=== PATIENT | female | born 1980 | race African-American/Black ===

== ENCOUNTER 2017-01-02 16:59 | Observation (INO) | payer MEDICAID ==
[~2017-01-02] VITALS: Ht 162.6 cm; Wt 88.5 kg
[2017-01-02 18:11] LABS: BASOPHILS % 0.3 % (0.0-2.0); EOSINOPHILS % 1.1 % (0.0-5.0); HEMATOCRIT. 33.3 % (36.0-48.0); HEMOGLOBIN. 11.1 g/dL (12.0-16.0); LYMPHOCYTES % 27.9 % (20.0-50.0); MEAN CORPUSCULAR HEMOGLOBIN 30.7 pg (28.0-32.0); MEAN CORPUSCULAR VOLUME 91.9 fL (81.0-99.0); MONOCYTES % 8.6 % (2.0-8.0); NEUTROPHILS % 62.1 % (40.0-76.0); PLATELET 314 x1000/uL (130-400); RED BLOOD CELL COUNT 3.63 mill/uL (4.2-5.4)
[2017-01-02 18:11] LABS: CLARITY URINE TURBID (CLEAR); COLOR URINE YELLOW (YELLOW); GLUCOSE URINE NEGATIVE (NEGATIVE); KETONES URINE NEGATIVE (NEGATIVE); LEUKOCYTE ESTERASE URINE 1+ (NEGATIVE); NITRITE URINE NEGATIVE (NEGATIVE); OCCULT BLOOD URINE TRACE (NEGATIVE); PROTEIN URINE 2+ (NEGATIVE); SPECIFIC GRAVITY URINE 1.023 (1.005-1.030)
[2017-01-02 18:20] LABS: CHLORIDE 108 mEq/L (98-107); PARTIAL THROMBOPLASTIN TIME 29.3 sec (23.4-31.0); PROTHROMBIN TIME 10.3 sec (9.4-11.6)
[2017-01-02 18:21] LABS: *AMPHETAMINES SCREEN URINE NEGATIVE (NEGATIVE); *BARBITURATES SCREEN URINE NEGATIVE (NEGATIVE); *BENZODIAZEPINES SCREEN URINE NEGATIVE (NEGATIVE); *COCAINE SCREEN URINE NEGATIVE (NEGATIVE); CANNABINOID URINE SCREEN NEGATIVE (NEGATIVE); METHADONE URINE SCREEN NEGATIVE (NEGATIVE); OPIATES URINE SCREEN NEGATIVE (NEGATIVE); PHENCYCLIDINE URINE SCREEN NEGATIVE (NEGATIVE)
[2017-01-02 18:23] LABS: CARBON DIOXIDE 22 mEq/L (21-32)
[2017-01-02 18:43] LABS: RUBELLA IGG 21.2 IU/mL (4.99-10)
[2017-01-02 18:44] LABS: HEPATITIS B SURFACE ANTIGEN NEGATIVE
[2017-01-02] MEDS: BETAMETHASONE ACET/BETAMET 30 MG/5 ML VIAL IM SCH (19:07)
[2017-01-02] MEDS: TERBUTALINE SULFATE 1MG/ML VIAL SUBCUT PRN (19:08)
[2017-01-02] MEDS: LACTATED RINGERS 1,000 ML IV SCH (19:43)
[2017-01-03] MEDS: LACTATED RINGERS 1,000 ML IV SCH ×3 (02:22→16:41)
[2017-01-03] MEDS: TERBUTALINE SULFATE 1MG/ML VIAL SUBCUT PRN (08:42)
[2017-01-03] MEDS ORDERED: ACETAMINOPHEN 325MG TABLET PO NR (09:00)
[2017-01-03] MEDS: BETAMETHASONE ACET/BETAMET 30 MG/5 ML VIAL IM SCH (18:46)
[2017-01-04] MEDS: LACTATED RINGERS 1,000 ML IV SCH ×3 (00:06→16:17)
[2017-01-04] MEDS: METRONIDAZOLE 500MG TABLET PO SCH ×2 (09:02→21:01)
[2017-01-04] MEDS ORDERED: ACETAMINOPHEN 500MG TABLET PO PRN (16:30)
== END 2017-01-05 09:30 | disposition home or self-care (01) ==
LOC: L&D 16:59
PROVIDERS: ADMIT Obstetrics & Gynecology; ATTEND Obstetrics & Gynecology
DX: O62.9 Abnormality of forces of labor, unspecified (principal); Z3A.33 33 weeks gestation of pregnancy
CPT/HCPCS: 36415; 76805; 76818; 80053; 80305; 81001; 82575; 84156; 84550; 85025; 85384; 85610; 85730; 86592; 86703; 86762; 86850; 86900; 86901; 87340; 96360; 96361; 96372; G0378; J0702; J3105; J7120; 99281

== ENCOUNTER 2017-01-07 03:45 | Observation (INO) | payer MEDICAID ==
[~2017-01-07] VITALS: Ht 160 cm; Wt 88.5 kg
[2017-01-07] MEDS ORDERED: LACTATED RINGERS 1,000 ML IV SCH (04:02)
[2017-01-07] MEDS ORDERED: ACETAMINOPHEN 500MG TABLET PO NR (04:15)
[2017-01-07] MEDS: LACTATED RINGERS 1,000 ML IV SCH ×2 (04:30→12:56)
[2017-01-07] MEDS ORDERED: DEXT 5%/LR + PITOCIN 20UNITS/L 1,000 ML IV SCH (05:32)
[2017-01-07 05:36] LABS: D-DIMER 0.85 mg/L FEU (<0.50); PARTIAL THROMBOPLASTIN TIME 28.5 sec (23.4-31.0); PROTHROMBIN TIME 10.4 sec (9.4-11.6)
[2017-01-07 05:37] LABS: BASOPHILS % 0.3 % (0.0-2.0); EOSINOPHILS % 0.5 % (0.0-5.0); HEMATOCRIT. 32.6 % (36.0-48.0); HEMOGLOBIN. 10.7 g/dL (12.0-16.0); LYMPHOCYTES % 25.6 % (20.0-50.0); MEAN CORPUSCULAR HEMOGLOBIN 30.3 pg (28.0-32.0); MEAN CORPUSCULAR VOLUME 92.5 fL (81.0-99.0); MEAN PLATELET VOLUME 7.7 fl (7.4-10.4); MONOCYTES % 7.4 % (2.0-8.0); NEUTROPHILS % 66.2 % (40.0-76.0); PLATELET 276 x1000/uL (130-400); RED BLOOD CELL COUNT 3.53 mill/uL (4.2-5.4); RED CELL DISTRIBUTION WIDTH 14.1 % (11.6-14.6)
[2017-01-07 05:39] LABS: CARBON DIOXIDE 25 mEq/L (21-32); CHLORIDE 106 mEq/L (98-107)
[2017-01-07] MEDS ORDERED: BUTORPHANOL TARTRATE 2 MG/ML VIAL IV PRN (05:45)
[2017-01-07] MEDS ORDERED: LIDOCAINE HCL 1% 20ML VIAL (Pyxis) INJ INFIL SCH (05:45)
[2017-01-07] MEDS ORDERED: MISOPROSTOL 100MCG TABLET VG SCH (05:45)
[2017-01-07 05:47] LABS: CLARITY URINE CLEAR (CLEAR); COLOR URINE YELLOW (YELLOW); GLUCOSE URINE NEGATIVE (NEGATIVE); KETONES URINE NEGATIVE (NEGATIVE); LEUKOCYTE ESTERASE URINE NEGATIVE (NEGATIVE); NITRITE URINE NEGATIVE (NEGATIVE); OCCULT BLOOD URINE NEGATIVE (NEGATIVE); PH URINE 6.5 (4.5-8.0); PROTEIN URINE 1+ (NEGATIVE); SPECIFIC GRAVITY URINE 1.018 (1.005-1.030); UROBILINOGEN URINE 0.2 E.U./dL (0.2-1.0)
[2017-01-07 06:16] LABS: *AMPHETAMINES SCREEN URINE NEGATIVE (NEGATIVE); *BARBITURATES SCREEN URINE NEGATIVE (NEGATIVE); *BENZODIAZEPINES SCREEN URINE NEGATIVE (NEGATIVE); *COCAINE SCREEN URINE NEGATIVE (NEGATIVE); CANNABINOID URINE SCREEN NEGATIVE (NEGATIVE); METHADONE URINE SCREEN NEGATIVE (NEGATIVE); OPIATES URINE SCREEN NEGATIVE (NEGATIVE); PHENCYCLIDINE URINE SCREEN NEGATIVE (NEGATIVE)
[2017-01-07] MEDS: MAGNESIUM 20 G PREMIX (L & D) 500 ML IV SCH ×3 (06:19→23:33)
[2017-01-07 07:51] LABS: HEPATITIS B SURFACE ANTIGEN NEGATIVE
[2017-01-07] MEDS: LABETALOL HCL 100MG TABLET PO SCH ×2 (08:51→20:09)
[2017-01-07] MEDS ORDERED: CEFAZOLIN 1000MG PREMIX 50 ML IV ONE (11:30)
[2017-01-07] MEDS: ACETAMINOPHEN 325MG TABLET PO PRN ×2 (12:52→20:09)
[2017-01-07] MEDS ORDERED: DIPHENHYDRAMINE 25MG CAPSULE PO NR (20:03)
[2017-01-08] MEDS: LACTATED RINGERS 1,000 ML IV SCH ×3 (02:22→22:02)
[2017-01-08] MEDS: ACETAMINOPHEN 325MG TABLET PO PRN (02:28)
[2017-01-08 05:10] LABS: BASOPHILS % 0.2 % (0.0-2.0); EOSINOPHILS % 0.4 % (0.0-5.0); HEMATOCRIT. 32.1 % (36.0-48.0); HEMOGLOBIN. 10.7 g/dL (12.0-16.0); LYMPHOCYTES % 23.6 % (20.0-50.0); MEAN CORPUSCULAR HEMOGLOBIN 30.6 pg (28.0-32.0); MEAN CORPUSCULAR VOLUME 91.6 fL (81.0-99.0); MEAN PLATELET VOLUME 7.1 fl (7.4-10.4); NEUTROPHILS % 66.8 % (40.0-76.0); PLATELET 277 x1000/uL (130-400); RED BLOOD CELL COUNT 3.51 mill/uL (4.2-5.4); RED CELL DISTRIBUTION WIDTH 14.5 % (11.6-14.6)
[2017-01-08 05:21] LABS: D-DIMER 0.87 mg/L FEU (<0.50)
[2017-01-08 06:06] LABS: CARBON DIOXIDE 27 mEq/L (21-32); CHLORIDE 104 mEq/L (98-107)
[2017-01-08] MEDS: LABETALOL HCL 100MG TABLET PO SCH ×2 (08:52→22:00)
[2017-01-08 08:53] VITALS: BP 145/94
[2017-01-08] MEDS: MAGNESIUM 20 G PREMIX (L & D) 500 ML IV SCH (08:53)
[2017-01-08] MEDS ORDERED: ACETAMINOPHEN 500MG TABLET PO SCH (09:15)
[2017-01-09] MEDS: LABETALOL HCL 100MG TABLET PO SCH (08:33)
[2017-01-09] MEDS: LACTATED RINGERS 1,000 ML IV SCH (08:34)
[2017-01-09] MEDS ORDERED: LABETALOL HCL 100MG TABLET PO SCH (14:00)
[2017-01-10] MEDS ORDERED: IRON1CAP21 PO (00:30)
[2017-01-10] MEDS ORDERED: PNV1TABL76 MT (00:30)
[2017-01-10] MEDS ORDERED: METR500T4 PO (00:30)
[2017-01-10] MEDS ORDERED: LABE100T PO (00:30)
== END 2017-01-09 09:25 | disposition home or self-care (01) ==
LOC: L&D 03:45
PROVIDERS: ADMIT Obstetrics & Gynecology; ATTEND Obstetrics & Gynecology
DX: O26.893 Other specified pregnancy related conditions, third trimester (principal); R51 Headache; O99.013 Anemia complicating pregnancy, third trimester; O16.3 Unspecified maternal hypertension, third trimester; Z3A.34 34 weeks gestation of pregnancy
CPT/HCPCS: 36415; 76815; 76818; 80053; 80305; 81001; 82575; 83735; 84550; 85025; 85379; 85384; 85610; 85730; 86592; 86703; 86762; 86850; 86900; 86901; 87340; 96361; 96365; 96366; 99281; G0378; J3475; J7120; Q0163

== ENCOUNTER 2017-01-09 20:56 | Observation (INO) | payer MEDICAID ==
[~2017-01-09] VITALS: Ht 157.5 cm; Wt 88.5 kg
[2017-01-09] MEDS ORDERED: ACETAMINOPHEN 500MG TABLET PO NR (22:15)
[2017-01-09] MEDS ORDERED: LABETALOL HCL 100MG TABLET PO NR (22:15)
[2017-01-10] MEDS ORDERED: IRON1CAP21 PO (00:30)
[2017-01-10] MEDS ORDERED: LABE100T PO (00:30)
[2017-01-10] MEDS ORDERED: PNV1TABL76 MT (00:30)
[2017-01-10] MEDS ORDERED: METR500T4 PO (00:30)
== END 2017-01-10 00:35 | disposition home or self-care (01) ==
LOC: L&D 20:56 → INTOOBSV 20:56
PROVIDERS: ADMIT Obstetrics & Gynecology; ATTEND Obstetrics & Gynecology
DX: O26.899 Other specified pregnancy related conditions, unspecified trimester (principal); R51 Headache; O16.9 Unspecified maternal hypertension, unspecified trimester
CPT/HCPCS: 59025; 76815; 76818; 99281; G0378

== ENCOUNTER 2017-01-21 11:40 | Inpatient (IN) | payer MEDICAID ==
[~2017-01-21] VITALS: Ht 160 cm; Wt 87.1 kg
[~2017-01-21 11:40] MED LIST: IRON1CAP21 PO; LABE100T PO; METR500T4 PO; PNV1TABL76 MT
[2017-01-21] MEDS ORDERED: ACETAMINOPHEN 500MG TABLET PO SCH (12:45)
[2017-01-21 13:28] LABS: BASOPHILS % 0.7 % (0.0-2.0); EOSINOPHILS % 0.9 % (0.0-5.0); HEMATOCRIT. 33.6 % (36.0-48.0); HEMOGLOBIN. 11.2 g/dL (12.0-16.0); LYMPHOCYTES % 24.9 % (20.0-50.0); MEAN CORPUSCULAR HEMOGLOBIN 30.4 pg (28.0-32.0); MEAN CORPUSCULAR VOLUME 91.3 fL (81.0-99.0); MEAN PLATELET VOLUME 7.4 fl (7.4-10.4); MONOCYTES % 5.5 % (2.0-8.0); PLATELET 285 x1000/uL (130-400); RED BLOOD CELL COUNT 3.68 mill/uL (4.2-5.4); RED CELL DISTRIBUTION WIDTH 14.5 % (11.6-14.6)
[2017-01-21 13:30] LABS: CLARITY URINE CLOUDY (CLEAR); COLOR URINE YELLOW (YELLOW); KETONES URINE TRACE (NEGATIVE); LEUKOCYTE ESTERASE URINE 1+ (NEGATIVE); NITRITE URINE NEGATIVE (NEGATIVE); OCCULT BLOOD URINE 2+ (NEGATIVE); PH URINE 5.5 (4.5-8.0); PROTEIN URINE 1+ (NEGATIVE); SPECIFIC GRAVITY URINE 1.035 (1.005-1.030)
[2017-01-21 13:35] LABS: CHLORIDE 108 mEq/L (98-107)
[2017-01-21 13:44] LABS: CARBON DIOXIDE 25 mEq/L (21-32)
[2017-01-21 13:55] LABS: D-DIMER 0.99 mg/L FEU (<0.50); PARTIAL THROMBOPLASTIN TIME 29.2 sec (23.4-31.0)
[2017-01-21] MEDS: LACTATED RINGERS 1,000 ML IV SCH ×2 (14:37→18:05)
[2017-01-21] MEDS: LABETALOL HCL 100MG TABLET PO SCH ×2 (14:46→22:46)
[2017-01-22] MEDS: LACTATED RINGERS 1,000 ML IV SCH ×4 (01:48→22:59)
[2017-01-22] MEDS: LABETALOL HCL 100MG TABLET PO SCH ×3 (06:00→22:03)
[2017-01-22] MEDS ORDERED: LACTATED RINGERS 1,000 ML IV SCH (07:08)
[2017-01-22] MEDS ORDERED: DEXT 5%/LACTATED RINGERS 1,000 ML IV SCH (07:08)
[2017-01-22] MEDS ORDERED: CARBOPROST TROMETHAMINE 250 MCG/ML AMPUL IM PRN (07:15)
[2017-01-22] MEDS ORDERED: LIDOCAINE HCL 1% 20ML VIAL (Pyxis) INJ INFIL PRN (07:15)
[2017-01-22] MEDS ORDERED: BUTORPHANOL TARTRATE 2 MG/ML VIAL IV PRN (07:15)
[2017-01-22] MEDS ORDERED: MISOPROSTOL 100MCG TABLET VG PRN (07:15)
[2017-01-22] MEDS ORDERED: NALOXONE HCL 0.4 MG/ML 1ML VIAL IM PRN (07:15)
[2017-01-22] MEDS ORDERED: METHYLERGONOVINE MALEATE 0.2 MG/ML IM PRN (07:15)
[2017-01-22 08:11] LABS: BASOPHILS % 0.3 % (0.0-2.0); EOSINOPHILS % 0.7 % (0.0-5.0); HEMATOCRIT. 33.6 % (36.0-48.0); LYMPHOCYTES % 29.6 % (20.0-50.0); MEAN CORPUSCULAR VOLUME 91.5 fL (81.0-99.0); MEAN PLATELET VOLUME 7.5 fl (7.4-10.4); NEUTROPHILS % 61.4 % (40.0-76.0); PLATELET 281 x1000/uL (130-400); RED BLOOD CELL COUNT 3.67 mill/uL (4.2-5.4); RED CELL DISTRIBUTION WIDTH 14.8 % (11.6-14.6)
[2017-01-22 08:26] LABS: D-DIMER 1.16 mg/L FEU (<0.50); PROTHROMBIN TIME 10.2 sec (9.4-11.6)
[2017-01-22 08:27] LABS: CARBON DIOXIDE 24 mEq/L (21-32); CHLORIDE 106 mEq/L (98-107)
[2017-01-22 08:39] LABS: *AMPHETAMINES SCREEN URINE NEGATIVE (NEGATIVE); *BARBITURATES SCREEN URINE NEGATIVE (NEGATIVE); *BENZODIAZEPINES SCREEN URINE NEGATIVE (NEGATIVE); *COCAINE SCREEN URINE NEGATIVE (NEGATIVE); CANNABINOID URINE SCREEN NEGATIVE (NEGATIVE); METHADONE URINE SCREEN NEGATIVE (NEGATIVE); OPIATES URINE SCREEN NEGATIVE (NEGATIVE); PHENCYCLIDINE URINE SCREEN NEGATIVE (NEGATIVE)
[2017-01-22 08:51] LABS: CLARITY URINE CLEAR (CLEAR); COLOR URINE YELLOW (YELLOW); KETONES URINE NEGATIVE (NEGATIVE); LEUKOCYTE ESTERASE URINE 3+ (NEGATIVE); NITRITE URINE NEGATIVE (NEGATIVE); OCCULT BLOOD URINE 1+ (NEGATIVE); PH URINE 6.5 (4.5-8.0); PROTEIN URINE NEGATIVE (NEGATIVE); SPECIFIC GRAVITY URINE 1.008 (1.005-1.030); UROBILINOGEN URINE 0.2 E.U./dL (0.2-1.0)
[2017-01-22 13:28] LABS: HEPATITIS B SURFACE ANTIGEN NEGATIVE; RUBELLA IGG 21.9 IU/mL (4.99-10)
[2017-01-23] MEDS: LABETALOL HCL 100MG TABLET PO SCH ×2 (06:06→13:33)
[2017-01-23] MEDS: LACTATED RINGERS 1,000 ML IV SCH ×4 (06:37→20:36)
[2017-01-23] MEDS ORDERED: TERBUTALINE SULFATE 1MG/ML VIAL SUBCUT NR (18:30)
[2017-01-23] MEDS ORDERED: DEXAMETHASONE 4MG/ML 1ML VIAL ONE (18:53)
[2017-01-23] MEDS ORDERED: MIDAZOLAM HCL 2 MG/2 ML VIAL ONE (18:53)
[2017-01-23] MEDS ORDERED: SODIUM CHLORIDE 0.9% 10ML VIAL ONE ×2 (18:53→21:53)
[2017-01-23] MEDS ORDERED: ONDANSETRON HCL 4MG/2ML VIAL ONE (18:53)
[2017-01-23] MEDS ORDERED: CLINDAMYCIN PHOSPHATE 900MG/6ML VIAL ONE (18:53)
[2017-01-23] MEDS ORDERED: OXYTOCIN 10 UNITS/ML 1ML ONE (18:53)
[2017-01-23] MEDS ORDERED: MORPHINE SULFATE/PF 1MG/ML 10ML AMP ONE (18:53)
[2017-01-23] MEDS ORDERED: GENTAMICIN 80MG PREMIX 100 ML IV NR (19:00)
[2017-01-23] MEDS ORDERED: EPHEDRINE SULFATE 50MG/ML VIAL ONE (21:24)
[2017-01-23] MEDS ORDERED: PHENYLEPHRINE HCL 10 MG/ML 1ML (IV VIAL) IV ONE (21:24)
[2017-01-23] MEDS ORDERED: TETANUS, DIPHTHERIA, PERTUSSIS VAC/PF 0.5ML (>7YR OLD) IM ONE (22:00)
[2017-01-23] MEDS ORDERED: BISACODYL 10MG SUPP PR PRN (22:00)
[2017-01-23] MEDS ORDERED: INFLUENZA VIRUS VACCINE 0.5ML SYR IM ONE (22:00)
[2017-01-23] MEDS ORDERED: ONDANSETRON HCL 4MG/2ML VIAL IV PRN ×2 (22:00→22:15)
[2017-01-23] MEDS ORDERED: DIPHENHYDRAMINE 25MG CAPSULE PO PRN ×2 (22:00→22:15)
[2017-01-23] MEDS ORDERED: LANOLIN OINT 0.25 GM TUBE TOP PRN (22:00)
[2017-01-23] MEDS ORDERED: HYDROCODONE/ACETAMINOPHEN 5/325MG TABLET PO PRN (22:00)
[2017-01-23] MEDS ORDERED: DIPHENHYDRAMINE 50MG/ML VIAL IV PRN (22:15)
[2017-01-23] MEDS ORDERED: NALOXONE HCL 0.4 MG/ML 1ML VIAL IV PRN (22:15)
[2017-01-23] MEDS: DEXT 5%/LR + PITOCIN 20UNITS/L 1,000 ML IV SCH (23:07)
[2017-01-23] MEDS ORDERED: HYDRALAZINE 20MG/ML VIAL IV NR (23:24)
[2017-01-24 02:30] VITALS: BP 160/93
[2017-01-24 03:30] VITALS: BP 151/90
[2017-01-24 05:30] VITALS: BP 137/91
[2017-01-24 06:04] LABS: BASOPHILS % 0.2 % (0.0-2.0); HEMATOCRIT. 35.2 % (36.0-48.0); HEMOGLOBIN. 11.7 g/dL (12.0-16.0); LYMPHOCYTES % 9.4 % (20.0-50.0); MEAN CORPUSCULAR HEMOGLOBIN 30.5 pg (28.0-32.0); MEAN CORPUSCULAR VOLUME 91.7 fL (81.0-99.0); MEAN PLATELET VOLUME 7.8 fl (7.4-10.4); MONOCYTES % 4.1 % (2.0-8.0); NEUTROPHILS % 86.3 % (40.0-76.0); PLATELET 295 x1000/uL (130-400); RED BLOOD CELL COUNT 3.84 mill/uL (4.2-5.4); RED CELL DISTRIBUTION WIDTH 14.6 % (11.6-14.6)
[2017-01-24] MEDS: DEXT 5%/LR + PITOCIN 20UNITS/L 1,000 ML IV SCH (06:23)
[2017-01-24 07:42] VITALS: BP 139/82
[2017-01-24] MEDS: KETOROLAC 30MG/ML VIAL IV SCH ×2 (07:42→11:15)
[2017-01-24] MEDS: LABETALOL HCL 100MG TABLET PO SCH ×2 (08:47→21:04)
[2017-01-24] MEDS: PRENATAL VIT/FE FUMARATE/FA TABLET PO SCH ×2 (09:00→13:17)
[2017-01-24] MEDS: SIMETHICONE 80MG TABLET CHEW PO SCH ×4 (09:00→21:02)
[2017-01-24] MEDS: MAGNESIUM/ALUMINUM HYDROXIDE/SIMETHICONE 30ML UDC PO SCH ×4 (09:00→21:02)
[2017-01-24] MEDS: FERROUS SULFATE 325MG TABLET PO SCH ×2 (13:17→17:57)
[2017-01-24 16:12] VITALS: BP 122/80
[2017-01-24] MEDS: IBUPROFEN 400MG TABLET PO PRN (19:19)
[2017-01-24 20:50] VITALS: BP 131/67
[2017-01-24] MEDS: DOCUSATE SODIUM 100MG CAPSULE PO SCH (21:03)
[2017-01-24] MEDS: DIPHENHYDRAMINE 50MG CAPSULE PO PRN (22:24)
[2017-01-25] VITALS: BP 144/70
[2017-01-25 04:00] VITALS: BP 144/79
[2017-01-25] MEDS: IBUPROFEN 400MG TABLET PO PRN (04:24)
[2017-01-25] MEDS: DIPHENHYDRAMINE 50MG CAPSULE PO PRN ×2 (07:05→19:38)
[2017-01-25] MEDS: HYDROCODONE/ACETAMINOPHEN 5/325MG TABLET PO PRN ×3 (07:08→19:40)
[2017-01-25 08:08] VITALS: BP 165/85
[2017-01-25] MEDS: MAGNESIUM/ALUMINUM HYDROXIDE/SIMETHICONE 30ML UDC PO SCH ×2 (08:34→19:41)
[2017-01-25] MEDS: LABETALOL HCL 100MG TABLET PO SCH ×2 (08:36→21:38)
[2017-01-25] MEDS: PRENATAL VIT/FE FUMARATE/FA TABLET PO SCH (08:36)
[2017-01-25] MEDS: SIMETHICONE 80MG TABLET CHEW PO SCH ×2 (08:36→19:41)
[2017-01-25] MEDS: FERROUS SULFATE 325MG TABLET PO SCH (08:36)
[2017-01-25 11:59] LABS: BASOPHILS % 0.1 % (0.0-2.0); EOSINOPHILS % 0.2 % (0.0-5.0); HEMATOCRIT. 31.2 % (36.0-48.0); HEMOGLOBIN. 10.3 g/dL (12.0-16.0); LYMPHOCYTES % 18.6 % (20.0-50.0); MEAN CORPUSCULAR HEMOGLOBIN 30.2 pg (28.0-32.0); MEAN CORPUSCULAR VOLUME 91.2 fL (81.0-99.0); MEAN PLATELET VOLUME 7.5 fl (7.4-10.4); MONOCYTES % 4.9 % (2.0-8.0); NEUTROPHILS % 76.2 % (40.0-76.0); PLATELET 292 x1000/uL (130-400); RED BLOOD CELL COUNT 3.42 mill/uL (4.2-5.4); RED CELL DISTRIBUTION WIDTH 14.8 % (11.6-14.6)
[2017-01-25] MEDS: IBUPROFEN 800MG TABLET PO SCH ×2 (13:41→20:26)
[2017-01-25 18:00] VITALS: BP 143/84
[2017-01-25] MEDS: DOCUSATE SODIUM 100MG CAPSULE PO SCH (19:39)
[2017-01-25 19:40] VITALS: BP 148/86
[2017-01-25 21:40] VITALS: BP 157/89
[2017-01-26 00:23] VITALS: BP 145/88
[2017-01-26 04:00] VITALS: BP 152/94
[2017-01-26] MEDS: IBUPROFEN 800MG TABLET PO SCH (04:06)
[2017-01-26] MEDS: HYDROCODONE/ACETAMINOPHEN 5/325MG TABLET PO PRN (04:06)
[2017-01-26] MEDS: DIPHENHYDRAMINE 50MG CAPSULE PO PRN (04:08)
[2017-01-26 08:20] VITALS: BP 155/94
[2017-01-26] MEDS: LABETALOL HCL 100MG TABLET PO SCH (08:31)
[2017-01-26] MEDS: SIMETHICONE 80MG TABLET CHEW PO SCH (08:31)
[2017-01-26] MEDS: MAGNESIUM/ALUMINUM HYDROXIDE/SIMETHICONE 30ML UDC PO SCH (08:32)
[2017-01-26] MEDS: PRENATAL VIT/FE FUMARATE/FA TABLET PO SCH (08:32)
[2017-01-26] MEDS ORDERED: TETANUS, DIPHTHERIA, PERTUSSIS VAC/PF 0.5ML (>7YR OLD) IM ONE (12:00)
== END 2017-01-26 11:30 | disposition home or self-care (01) | DRG 540 ==
LOC: ER 12:24 → OBSVTOIN 12:30 → L&D 12:30 → CANBEDREQ 18:09 → 7EST PP/OB 01-24 01:53
PROVIDERS: ADMIT Obstetrics & Gynecology; ATTEND Obstetrics & Gynecology
PROC: 10D00Z1 Extraction of Products of Conception, Low, Open Approach (ICD-10-PCS; principal; 2017-01-23 23:59)
DX: O16.4 Unspecified maternal hypertension, complicating childbirth (principal); O41.03X0 Oligohydramnios, third trimester, not applicable or unspecified; O34.211 Maternal care for low transverse scar from previous cesarean delivery; D64.9 Anemia, unspecified; O99.334 Smoking (tobacco) complicating childbirth; O99.02 Anemia complicating childbirth; F17.210 Nicotine dependence, cigarettes, uncomplicated; O34.593 Maternal care for other abnormalities of gravid uterus, third trimester; Z37.0 Single live birth; Z3A.36 36 weeks gestation of pregnancy; Z88.0 Allergy status to penicillin; O09.523 Supervision of elderly multigravida, third trimester
CPT/HCPCS: 36415; 76815; 76818; 80053; 80305; 81001; 84550; 85025; 85379; 85384; 85610; 85730; 86703; 86762; 86850; 86900; 86920; 87340; 88307; 90686; 90715; A4216; C1893; G0378; J0171; J0360; J1100; J1580; J1885; J2250; J2274; J2370; J2405; J2590; J3105; J3490; J7120; J7121; Q0163; A4315

== ENCOUNTER 2018-09-23 14:17 | Emergency (ER) | payer MEDICAID ==
[~2018-09-23] VITALS: Ht 165.1 cm; Wt 71.0 kg
[2018-09-23] MEDS ORDERED: MAGNESIUM/ALUMINUM HYDROXIDE/SIMETHICONE 30ML UDC PO STA (16:47)
[2018-09-23] MEDS ORDERED: SODIUM CHLORIDE 0.9% 1,000 ML IV ONE (16:47)
[2018-09-23] MEDS ORDERED: FAMOTIDINE 20MG TABLET PO ONE (17:00)
[2018-09-23] MEDS ORDERED: METOCLOPRAMIDE HCL 10MG/2ML VIAL IV ONE (17:00)
[2018-09-23] MEDS ORDERED: DIPHENHYDRAMINE 25MG CAPSULE PO ONE (17:00)
[2018-09-23] MEDS ORDERED: ACETAMINOPHEN 500MG TABLET PO ONE (17:00)
[2018-09-23 17:11] LABS: BASOPHILS % 0.3 % (0.0-2.0); EOSINOPHILS % 0.3 % (0.0-5.0); HEMATOCRIT. 38.4 % (36.0-48.0); HEMOGLOBIN. 12.7 g/dL (12.0-16.0); LYMPHOCYTES % 29.2 % (20.0-50.0); MEAN CORPUSCULAR HEMOGLOBIN 31.9 pg (28.0-32.0); MEAN CORPUSCULAR VOLUME 96.6 fL (81.0-99.0); MEAN PLATELET VOLUME 7.6 fl (7.4-10.4); MONOCYTES % 4.7 % (2.0-8.0); NEUTROPHILS % 65.5 % (40.0-76.0); PLATELET 290 x1000/uL (130-400); RED BLOOD CELL COUNT 3.98 mill/uL (4.2-5.4); RED CELL DISTRIBUTION WIDTH 15.5 % (11.6-14.6)
[2018-09-23 17:12] LABS: CHLORIDE 108 mEq/L (98-107)
[2018-09-23 17:23] LABS: COLOR URINE YELLOW (YELLOW); KETONES URINE NEGATIVE (NEGATIVE); LEUKOCYTE ESTERASE URINE NEGATIVE (NEGATIVE); NITRITE URINE NEGATIVE (NEGATIVE); OCCULT BLOOD URINE NEGATIVE (NEGATIVE); PH URINE 5.5 (4.5-8.0); PROTEIN URINE TRACE (NEGATIVE); SPECIFIC GRAVITY URINE 1.047 (1.005-1.030); UROBILINOGEN URINE 0.2 E.U./dL (0.2-1.0)
[2018-09-23 17:28] LABS: CLARITY URINE CLOUDY (CLEAR)
[2018-09-23 18:32] VITALS: BP 133/93
== END 2018-09-23 18:37 | disposition home or self-care (01) ==
LOC: ER 14:33
DX: R10.13 Epigastric pain (principal); I10 Essential (primary) hypertension; F17.200 Nicotine dependence, unspecified, uncomplicated; Z98.890 Other specified postprocedural states; Z88.0 Allergy status to penicillin
CPT/HCPCS: 36415; 80053; 81003; 81025; 85025; 96361; 96374; 99284; J2765; J7030; Q0163; Z7610

== ENCOUNTER 2018-11-29 17:39 | Inpatient (IN) | payer MEDICAID ==
[~2018-11-29] VITALS: Ht 157.5 cm; Wt 76.7 kg
[2018-11-29] MEDS ORDERED: ONDANSETRON HCL 4MG/2ML INJ IV STA (19:08)
[2018-11-29] MEDS ORDERED: MORPHINE SULFATE 4 MG/ML CPJ (NOT FOR IM USE) IV STA (19:08)
[2018-11-29 19:27] LABS: BASOPHILS % 0.8 % (0.0-2.0); EOSINOPHILS % 1.5 % (0.0-5.0); HEMATOCRIT. 37.9 % (36.0-48.0); HEMOGLOBIN. 12.4 g/dL (12.0-16.0); LYMPHOCYTES % 53.5 % (20.0-50.0); MEAN CORPUSCULAR HEMOGLOBIN 31.8 pg (28.0-32.0); MEAN CORPUSCULAR VOLUME 97.6 fL (81.0-99.0); MONOCYTES % 6.2 % (2.0-8.0); PLATELET 353 x1000/uL (130-400); RED BLOOD CELL COUNT 3.88 mill/uL (4.2-5.4); RED CELL DISTRIBUTION WIDTH 15.9 % (11.6-14.6)
[2018-11-29 19:35] LABS: CHLORIDE 114 mEq/L (98-107)
[2018-11-29 19:36] LABS: HCG SCREEN NEGATIVE
[2018-11-29 19:41] LABS: ETHANOL BLOOD < 10 mg/dL
[2018-11-29 19:57] LABS: D-DIMER 0.3 mg/L FEU (<0.50); INR 1.1; PARTIAL THROMBOPLASTIN TIME 23.1 sec (23.4-31.0); PROTHROMBIN TIME 11.1 sec (9.6-11.0)
[2018-11-29 20:41] LABS: *BARBITURATES SCREEN URINE NEGATIVE (NEGATIVE); *BENZODIAZEPINES SCREEN URINE NEGATIVE (NEGATIVE); *COCAINE SCREEN URINE NEGATIVE (NEGATIVE); CANNABINOID URINE SCREEN NEGATIVE (NEGATIVE); METHADONE URINE SCREEN NEGATIVE (NEGATIVE); PHENCYCLIDINE URINE SCREEN NEGATIVE (NEGATIVE)
[2018-11-29 20:42] LABS: *AMPHETAMINES SCREEN URINE NEGATIVE (NEGATIVE)
[2018-11-29 20:59] LABS: OPIATES URINE SCREEN PRESUMTIVE POSITIVE (NEGATIVE)
[2018-11-29] MEDS ORDERED: IOHEXOL-350 100 ML BOTTLE ONE (21:59)
[2018-11-29] MEDS ORDERED: MIDAZOLAM HCL 2 MG/2 ML VIAL IV ONE (22:00)
[2018-11-29] MEDS ORDERED: KETAMINE HCL 50 MG/ML 10ML IV ONE (22:00)
[2018-11-29] MEDS ORDERED: FENTANYL CITRATE/PF 50MCG/ML 2ML VIAL IV ONE (22:00)
[2018-11-29] MEDS ORDERED: LIDOCAINE HCL/PF 1% 10 MG/ML 5ML VIAL IJ ONE (22:00)
[2018-11-29] MEDS ORDERED: DOCUSATE SODIUM 100MG CAPSULE PO PRN (23:30)
[2018-11-29] MEDS ORDERED: NA PHOS,M-B/NA PHOS,DI-BA ENEMA 118ML PR PRN (23:30)
[2018-11-29] MEDS ORDERED: IPRATROPIUM/ALBUTEROL 0.5-3(2.5)MG/3ML NEB HHN PRN (23:30)
[2018-11-29] MEDS ORDERED: CLONIDINE 0.1MG TABLET PO PRN (23:30)
[2018-11-29] MEDS ORDERED: HYDRALAZINE 20MG/ML VIAL IV PRN (23:30)
[2018-11-29] MEDS ORDERED: MAGNESIUM/ALUMINUM HYDROXIDE/SIMETHICONE 30ML UDC PO PRN (23:30)
[2018-11-29] MEDS ORDERED: LORAZEPAM 2MG/ML CPJ IV PRN (23:30)
[2018-11-29] MEDS ORDERED: DIPHENHYDRAMINE 50MG/ML VIAL IV PRN (23:30)
[2018-11-29] MEDS ORDERED: GUAIFENESIN 200MG/10ML SUGAR FREE UDC PO PRN (23:30)
[2018-11-30 00:22] VITALS: BP 132/93
[2018-11-30 04:00] VITALS: BP 137/84
[2018-11-30] MEDS: HYDROMORPHONE HCL/PF 2MG/ML CPJ IV PRN ×2 (04:42→10:51)
[2018-11-30] MEDS: SODIUM CHLORIDE 0.9% INJ 3ML FLUSH IVF SCH ×3 (05:18→21:39)
[2018-11-30 08:02] LABS: BASOPHILS % 0.4 % (0.0-2.0); CHLORIDE 113 mEq/L (98-107); EOSINOPHILS % 1.7 % (0.0-5.0); HEMATOCRIT. 37.7 % (36.0-48.0); HEMOGLOBIN. 12.2 g/dL (12.0-16.0); LYMPHOCYTES % 34.2 % (20.0-50.0); MEAN CORPUSCULAR HEMOGLOBIN 31.3 pg (28.0-32.0); MEAN CORPUSCULAR VOLUME 96.3 fL (81.0-99.0); MEAN PLATELET VOLUME 7.7 fl (7.4-10.4); MONOCYTES % 5.3 % (2.0-8.0); NEUTROPHILS % 58.4 % (40.0-76.0); PLATELET 338 x1000/uL (130-400); RED BLOOD CELL COUNT 3.91 mill/uL (4.2-5.4); RED CELL DISTRIBUTION WIDTH 15.7 % (11.6-14.6)
[2018-11-30 08:06] VITALS: BP 126/86
[2018-11-30] MEDS: ASPIRIN 81MG EC TABLET PO SCH (08:09)
[2018-11-30] MEDS: ENOXAPARIN 40MG/0.4ML SYR SUBCUT SCH (08:09)
[2018-11-30] MEDS: HYDROCODONE/ACETAMINOPHEN 10/325MG TABLET PO PRN (08:09)
[2018-11-30 08:13] LABS: CREATINE KINASE 74 IU/L (26-192); LDL CHOLESTEROL 79 mg/dL (5-100); T4 FREE 0.61 ng/dL (0.76-1.46)
[2018-11-30 08:15] LABS: CREATINE KINASE MB FRACTION < 1.0 ng/mL (0.5-3.6); HDL CHOLESTEROL 49 mg/dL (40-59)
[2018-11-30] MEDS: NICOTINE 14MG PATCH TD SCH (09:59)
[2018-11-30] MEDS ORDERED: POTASSIUM CHLORIDE 20MEQ TABLET SR PO NR (11:30)
[2018-11-30] MEDS: ONDANSETRON HCL 4MG/2ML INJ IV PRN ×2 (12:07→18:11)
[2018-11-30 12:12] VITALS: BP 151/95
[2018-11-30 16:17] VITALS: BP 134/97
[2018-11-30 17:49] LABS: CREATINE KINASE 65 IU/L (26-192)
[2018-11-30 17:50] LABS: CREATINE KINASE MB FRACTION < 1.0 ng/mL (0.5-3.6)
[2018-11-30 20:00] VITALS: BP 140/68
[2018-11-30] MEDS: ACETAMINOPHEN 325MG TABLET PO PRN (21:50)
[2018-12-01] VITALS: BP 137/86
[2018-12-01 04:00] VITALS: BP 135/88
[2018-12-01] MEDS: ACETAMINOPHEN 325MG TABLET PO PRN ×2 (04:30→12:33)
[2018-12-01] MEDS: SODIUM CHLORIDE 0.9% INJ 3ML FLUSH IVF SCH ×2 (05:38→22:32)
[2018-12-01] MEDS: NICOTINE 14MG PATCH TD SCH (08:07)
[2018-12-01] MEDS: ENOXAPARIN 40MG/0.4ML SYR SUBCUT SCH (08:07)
[2018-12-01] MEDS: ASPIRIN 81MG EC TABLET PO SCH (08:07)
[2018-12-01 08:48] VITALS: BP 126/80
[2018-12-01 11:58] VITALS: BP 129/87
[2018-12-01] MEDS: KETOROLAC 15MG/ML VIAL IV PRN (18:01)
[2018-12-01 20:35] VITALS: BP 156/100
[2018-12-01] MEDS: HYDROCODONE/ACETAMINOPHEN 10/325MG TABLET PO PRN (22:20)
[2018-12-02 00:30] VITALS: BP 151/108
[2018-12-02 04:00] VITALS: BP 137/88
[2018-12-02 05:43] LABS: BASOPHILS % 0.3 % (0.0-2.0); EOSINOPHILS % 1.3 % (0.0-5.0); HEMATOCRIT. 36.7 % (36.0-48.0); LYMPHOCYTES % 48.4 % (20.0-50.0); MEAN CORPUSCULAR HEMOGLOBIN 31.6 pg (28.0-32.0); MEAN CORPUSCULAR VOLUME 96.7 fL (81.0-99.0); MEAN PLATELET VOLUME 7.5 fl (7.4-10.4); MONOCYTES % 6.2 % (2.0-8.0); NEUTROPHILS % 43.8 % (40.0-76.0); PLATELET 326 x1000/uL (130-400); RED BLOOD CELL COUNT 3.79 mill/uL (4.2-5.4); RED CELL DISTRIBUTION WIDTH 15.7 % (11.6-14.6)
[2018-12-02 06:20] LABS: CHLORIDE 105 mEq/L (98-107)
[2018-12-02] MEDS: SODIUM CHLORIDE 0.9% INJ 3ML FLUSH IVF SCH (06:26)
[2018-12-02 08:00] VITALS: BP 127/85
[2018-12-02] MEDS: KETOROLAC 15MG/ML VIAL IV PRN (08:02)
[2018-12-02] MEDS: ASPIRIN 81MG EC TABLET PO SCH (08:03)
[2018-12-02] MEDS: NICOTINE 14MG PATCH TD SCH (08:03)
[2018-12-02] MEDS: ENOXAPARIN 40MG/0.4ML SYR SUBCUT SCH (08:03)
[2018-12-02 10:58] VITALS: BP 127/85
== END 2018-12-02 11:55 | disposition home or self-care (01) | DRG 143 ==
LOC: ER 20:33 → 6WST 22:18 → ENRESERV 23:18
PROVIDERS: ADMIT Internal Medicine; ATTEND Internal Medicine
DX: J93.83 Other pneumothorax (principal); J96.00 Acute respiratory failure, unspecified whether with hypoxia or hypercapnia; I10 Essential (primary) hypertension; E87.6 Hypokalemia; G43.909 Migraine, unspecified, not intractable, without status migrainosus; F17.210 Nicotine dependence, cigarettes, uncomplicated; E78.5 Hyperlipidemia, unspecified; Z98.891 History of uterine scar from previous surgery; Z88.0 Allergy status to penicillin; Z71.6 Tobacco abuse counseling
CPT/HCPCS: 36415; 71045; 71275; 80048; 80061; 80305; 80320; 82550; 82553; 83036; 83880; 84439; 84443; 84484; 84703; 85379; 93005; 93306; 96374; 99285; J1170; J1650; J1885; J2270; J2405; Q9967; G0480

== ENCOUNTER 2019-11-13 17:24 | Emergency (ER) | payer MEDICAID ==
[~2019-11-13] VITALS: Ht 157.5 cm; Wt 67.0 kg
[2019-11-13 17:25] VITALS: BP 170/111
[2019-11-13] MEDS ORDERED: METO-385 PO (17:29)
== END 2019-11-13 19:54 | disposition left against medical advice (07) ==
LOC: ER 17:42
DX: Z53.21 Procedure and treatment not carried out due to patient leaving prior to being seen by health care provider (principal); I10 Essential (primary) hypertension; Z88.0 Allergy status to penicillin; Z98.890 Other specified postprocedural states
CPT/HCPCS: 93005

== ENCOUNTER 2022-09-07 12:21 | Emergency (ER) | payer BC, MEDICAID ==
[~2022-09-07] VITALS: Ht 160 cm; Wt 69.0 kg
[~2022-09-07 12:21] MED LIST changes: -IRON1CAP21 PO; -LABE100T PO; +METO-385 PO; -METR500T4 PO; -PNV1TABL76 MT
[2022-09-07 13:27] VITALS: O2SAT 100
[2022-09-07] MEDS ORDERED: ACETAMINOPHEN 325MG TABLET PO STA (15:26)
[2022-09-07] MEDS ORDERED: METOCLOPRAMIDE HCL 10MG TABLET PO ONE (15:30)
[2022-09-07 16:30] LABS: CLARITY URINE CLOUDY (CLEAR); COLOR URINE DARK YELLOW (YELLOW); KETONES URINE TRACE (NEGATIVE); LEUKOCYTE ESTERASE URINE 1+ (NEGATIVE); NITRITE URINE NEGATIVE (NEGATIVE); OCCULT BLOOD URINE 3+ (NEGATIVE); PROTEIN URINE 1+ (NEGATIVE); SPECIFIC GRAVITY URINE 1.045 (1.005-1.030)
[2022-09-07] MEDS ORDERED: LEVETIRACETAM 500MG PREMIX 100 ML IV ONE (16:30)
[2022-09-07] MEDS ORDERED: NICARDIPINE 40MG/200ML PREMIX 200 ML IV PRN ×2 (16:30→17:15)
[2022-09-07] MEDS ORDERED: MORPHINE SULFATE 4 MG/ML CPJ (NOT FOR IM USE) IV ONE (16:30)
[2022-09-07] MEDS ORDERED: METOCLOPRAMIDE HCL 10MG/2ML VIAL IV ONE (16:45)
[2022-09-07 17:08] LABS: BASOPHILS % 0.8 % (0.0-2.0); EOSINOPHILS % 0.4 % (0.0-5.0); HEMATOCRIT. 38.8 % (36.0-48.0); HEMOGLOBIN. 12.5 g/dL (12.0-16.0); LYMPHOCYTES % 47.5 % (20.0-50.0); MEAN CORPUSCULAR HEMOGLOBIN 30.5 pg (28.0-32.0); MEAN CORPUSCULAR VOLUME 94.7 fL (81.0-99.0); MEAN PLATELET VOLUME 7.2 fl (7.4-10.4); NEUTROPHILS % 44.3 % (40.0-76.0); PLATELET 520 x1000/uL (130-400); RED CELL DISTRIBUTION WIDTH 19.8 % (11.6-14.6)
[2022-09-07 17:18] LABS: CHLORIDE 109 mEq/L (98-107)
[2022-09-07 17:29] LABS: ETHANOL BLOOD < 10 mg/dL (-10)
[2022-09-07 17:43] LABS: INR 1.1; PROTHROMBIN TIME 11.5 sec (9.6-11.0)
[2022-09-07] MEDS ORDERED: KCL 20MEQ/100ML PREMIX 100 ML IV ONE ×2 (17:45→18:45)
[2022-09-07] MEDS ORDERED: IOHEXOL-350 100 ML BOTTLE ONE (18:20)
[2022-09-07 19:04] LABS: HCG SCREEN NEGATIVE
[2022-09-07] MEDS ORDERED: HYDROMORPHONE HCL/PF 2MG/ML CPJ IV ONE (19:45)
[2022-09-07 20:11] LABS: *AMPHETAMINES SCREEN URINE NEGATIVE (NEGATIVE); *BARBITURATES SCREEN URINE NEGATIVE (NEGATIVE); *BENZODIAZEPINES SCREEN URINE NEGATIVE (NEGATIVE); *COCAINE SCREEN URINE NEGATIVE (NEGATIVE); CANNABINOID URINE SCREEN NEGATIVE (NEGATIVE); METHADONE URINE SCREEN NEGATIVE (NEGATIVE); OPIATES URINE SCREEN NEGATIVE (NEGATIVE); PHENCYCLIDINE URINE SCREEN NEGATIVE (NEGATIVE)
[2022-09-07] MEDS ORDERED: NIMODIPINE 30MG CAPSULE PO NR (23:15)
[2022-09-08 01:10] VITALS: BP 110/74; PULSE 90; RESP 20; TEMP 98.7
== END 2022-09-08 02:01 | disposition short-term general hospital (02) ==
LOC: ER 12:21
DX: I60.9 Nontraumatic subarachnoid hemorrhage, unspecified (principal); R51.9 Headache, unspecified; E87.6 Hypokalemia; I10 Essential (primary) hypertension; Z20.822 Contact with and (suspected) exposure to COVID-19
CPT/HCPCS: 80053; 80305; 81003; 81025; 80320; 84703; 83735; 85025; 85610; 86850; 86900; 86901; 84484; 87804 ×2; 36415; 70496; 70498; 70450; 96367; 96365; 96366; 96375 ×2; 99291; 87426 ×2; 96361; Q9967; Z7610 ×5; J1953; J2765; J3480; J1170; J2270; C9803; G0480

== ENCOUNTER 2022-10-01 13:35 | Emergency (ER) | payer BC ==
[~2022-10-01] VITALS: Ht 160 cm; Wt 65.0 kg
[2022-10-01 13:41] VITALS: O2SAT 98
[2022-10-01 13:50] VITALS: TEMP 98.5
[2022-10-01] MEDS ORDERED: METOCLOPRAMIDE HCL 10MG/2ML VIAL IV ONE (14:00)
[2022-10-01] MEDS ORDERED: FAMOTIDINE 20MG/2ML VIAL IV SCH (14:00)
[2022-10-01 14:29] LABS: BASOPHILS % 1.4 % (0.0-2.0); EOSINOPHILS % 3.9 % (0.0-5.0); HEMATOCRIT. 31.7 % (36.0-48.0); HEMOGLOBIN. 10.6 g/dL (12.0-16.0); LYMPHOCYTES % 34.1 % (20.0-50.0); MEAN CORPUSCULAR HEMOGLOBIN 31.4 pg (28.0-32.0); MEAN CORPUSCULAR VOLUME 93.9 fL (81.0-99.0); MEAN PLATELET VOLUME 7.8 fl (7.4-10.4); NEUTROPHILS % 54.6 % (40.0-76.0); PLATELET 553 x1000/uL (130-400); RED BLOOD CELL COUNT 3.38 mill/uL (4.2-5.4); RED CELL DISTRIBUTION WIDTH 19.4 % (11.6-14.6)
[2022-10-01 14:35] LABS: CHLORIDE 114 mEq/L (98-107)
[2022-10-01 14:40] LABS: HCG SCREEN NEGATIVE
[2022-10-01] MEDS ORDERED: MORPHINE SULFATE 2 MG/ML CPJ (NOT FOR IM USE) IV NR (15:00)
[2022-10-01 15:13] VITALS: BP 133/64; PULSE 101; RESP 17
== END 2022-10-01 15:43 | disposition left against medical advice (07) ==
LOC: ER 13:35
DX: M79.10 Myalgia, unspecified site (principal); R51.9 Headache, unspecified; R11.2 Nausea with vomiting, unspecified; I10 Essential (primary) hypertension; Z98.890 Other specified postprocedural states
CPT/HCPCS: 80053; 84703; 85025; 84484; 36415; 70450; 93005; 96374; 96375; 99285; J3490; J2765; J2270; Z7610 ×4

== ENCOUNTER 2023-07-14 13:42 | Emergency (ER) | payer BC, MEDICAID, OTHER ==
[~2023-07-14] VITALS: Ht 170.2 cm; Wt 68.0 kg
[2023-07-14 14:00] VITALS: BP 146/87; PULSE 104; RESP 16; TEMP 98.4; O2SAT 99
[2023-07-14] MEDS ORDERED: ACETAMINOPHEN 325MG TABLET PO ONE (15:15)
[2023-07-14] MEDS ORDERED: TOPUD PO (15:16)
[2023-07-14] MEDS ORDERED: CLIN-194 PO (15:16)
== END 2023-07-14 16:17 | disposition home or self-care (01) ==
LOC: ER 14:02
DX: J02.9 Acute pharyngitis, unspecified (principal); B34.9 Viral infection, unspecified; I10 Essential (primary) hypertension; G43.909 Migraine, unspecified, not intractable, without status migrainosus; Z98.890 Other specified postprocedural states; Z20.822 Contact with and (suspected) exposure to COVID-19
CPT/HCPCS: 87430; 87070; 87804 ×2; 99283; 87426; Z7610

== ENCOUNTER 2024-03-25 12:10 | Emergency (ER) | payer MEDICAID ==
[~2024-03-25] VITALS: Ht 167.6 cm; Wt 74.0 kg
[~2024-03-25 12:10] MED LIST changes: +CLIN-194 PO; +TOPUD PO
[2024-03-25 12:13] VITALS: O2SAT 98
[2024-03-25 14:31] LABS: CLARITY URINE CLOUDY (CLEAR); COLOR URINE DARK YELLOW (YELLOW); GLUCOSE URINE NEGATIVE (NEGATIVE); KETONES URINE 1+ (NEGATIVE); LEUKOCYTE ESTERASE URINE 1+ (NEGATIVE); NITRITE URINE NEGATIVE (NEGATIVE); OCCULT BLOOD URINE NEGATIVE (NEGATIVE); PH URINE 5.5 (4.5-8.0); PROTEIN URINE 1+ (NEGATIVE); SPECIFIC GRAVITY URINE 1.051 (1.005-1.030)
[2024-03-25 14:42] LABS: BACTERIA URINE 1+; RBC URINE 0-2 /hpf (0-2); SQUAMOUS EPITHELIAL CELL URINE 3+ /lpf (RARE/1+); WBC URINE 25-50 /hpf (0-2); YEAST URINE NONE SEEN
[2024-03-25 15:04] LABS: *AMPHETAMINES SCREEN URINE NEGATIVE (NEGATIVE); *BARBITURATES SCREEN URINE NEGATIVE (NEGATIVE); *BENZODIAZEPINES SCREEN URINE NEGATIVE (NEGATIVE); *COCAINE SCREEN URINE NEGATIVE (NEGATIVE); CANNABINOID URINE SCREEN NEGATIVE (NEGATIVE); ECSTASY MDMA SCREEN URINE NEGATIVE (NEGATIVE); METHADONE URINE SCREEN NEGATIVE (NEGATIVE); OPIATES URINE SCREEN NEGATIVE (NEGATIVE); PHENCYCLIDINE URINE SCREEN NEGATIVE (NEGATIVE)
[2024-03-25 15:30] LABS: BASOPHILS % 0.5 % (0.0-2.0); EOSINOPHILS % 0.3 % (0.0-5.0); HEMATOCRIT. 36.8 % (36.0-48.0); HEMOGLOBIN. 11.5 g/dL (12.0-16.0); LYMPHOCYTES % 40.6 % (20.0-50.0); MEAN CORPUSCULAR HEMOGLOBIN 30.8 pg (28.0-32.0); MEAN CORPUSCULAR HGB CONC 31.3 g/dL (31.0-37.0); MEAN CORPUSCULAR VOLUME 98.5 fL (81.0-99.0); MEAN PLATELET VOLUME 7.4 fl (7.4-10.4); NEUTROPHILS % 51.6 % (40.0-76.0); PLATELET 386 x1000/uL (130-400); RED BLOOD CELL COUNT 3.74 mill/uL (4.2-5.4); RED CELL DISTRIBUTION WIDTH 18.8 % (11.6-14.6); WHITE BLOOD COUNT 5.2 x1000/uL (4.5-11.0)
[2024-03-25 15:35] LABS: CHLORIDE 107 mEq/L (98-107); SODIUM 144 mEq/L (136-145)
[2024-03-25 15:36] LABS: CARBON DIOXIDE 26 mEq/L (21-32)
[2024-03-25 15:37] LABS: CALCIUM 9.6 mg/dL (8.7-10.4)
[2024-03-25 15:41] LABS: CREATININE 0.8 mg/dL (0.6-1.0); GLUCOSE 133 mg/dL (70-105)
[2024-03-25 15:42] LABS: UREA NITROGEN BLOOD 11 mg/dL (9-23)
[2024-03-25 15:44] LABS: ACETAMINOPHEN 10 ug/mL (10-30)
[2024-03-25 15:56] LABS: HCG SCREEN NEGATIVE
[2024-03-25 16:05] LABS: ETHANOL BLOOD < 10 mg/dL (<10)
[2024-03-25] MEDS: ACETAMINOPHEN 325MG TABLET PO ONE (17:31)
[2024-03-25] MEDS ORDERED: POTASSIUM CHLORIDE 20MEQ TABLET SR PO ONE (19:00)
[2024-03-25] MEDS ORDERED: ONDANSETRON 4MG ODT PO ONE (20:00)
[2024-03-25] MEDS: POTASSIUM CHLORIDE 20MEQ TABLET SR PO NR (21:38)
[2024-03-25] MEDS: NITROFURANTOIN 100MG M/M CAPSULE PO SCH (21:38)
[2024-03-26 13:01] VITALS: BP 126/71; PULSE 85; RESP 17; TEMP 36.94740; O2SAT 100
[2024-03-26] MEDS: LORAZEPAM 2MG/ML INJ IM ONE (13:35)
[2024-03-26] MEDS: OLANZAPINE 10 MG/VIAL IM ONE (13:35)
[2024-03-26 16:03] LABS: POTASSIUM 3.9 mEq/L (3.5-5.1)
== END 2024-03-26 17:37 | disposition short-term general hospital (02) ==
LOC: ER 12:10
DX: S61.512A Laceration without foreign body of left wrist, initial encounter (principal); R45.851 Suicidal ideations; I11.0 Hypertensive heart disease with heart failure; I50.9 Heart failure, unspecified; J45.909 Unspecified asthma, uncomplicated; G43.909 Migraine, unspecified, not intractable, without status migrainosus; Z86.73 Personal history of transient ischemic attack (TIA), and cerebral infarction without residual deficits; Z98.890 Other specified postprocedural states; Z88.0 Allergy status to penicillin; X58.XXXA Exposure to other specified factors, initial encounter; Y93.89 Activity, other specified; Y92.89 Other specified places as the place of occurrence of the external cause; Y99.8 Other external cause status
CPT/HCPCS: 80305; 80048; 81003; 80307; 80329; 80320; 84703; 85025; 87086; 36415 ×2; 12001; 99285; 87426; 84132; 96372; Z7610 ×5; J3490; J2060; A4606; G0480

== ENCOUNTER 2025-01-09 10:57 | Emergency (ER) | payer MEDICAID ==
[~2025-01-09] VITALS: Ht 157.5 cm; Wt 88.0 kg
[2025-01-09 11:04] VITALS: O2SAT 99
[2025-01-09] MEDS ORDERED: CAPS42.514 TP (12:35)
[2025-01-09] MEDS ORDERED: DICL100G46 TP (12:35)
[2025-01-09] MEDS ORDERED: LIDO-53 TP (12:35)
[2025-01-09] MEDS: KETOROLAC 30MG/ML VIAL IM ONE (12:41)
[2025-01-09] MEDS: LIDOCAINE 5% PATCH TOP SCH (12:41)
[2025-01-09 12:44] VITALS: BP 132/90; PULSE 92; RESP 17; TEMP 37.1; O2SAT 100
== END 2025-01-09 12:45 | disposition home or self-care (01) ==
LOC: ER 10:57
DX: G89.29 Other chronic pain (principal); M54.50 Low back pain, unspecified; I11.0 Hypertensive heart disease with heart failure; I50.9 Heart failure, unspecified; J45.909 Unspecified asthma, uncomplicated; Z88.0 Allergy status to penicillin; Z86.73 Personal history of transient ischemic attack (TIA), and cerebral infarction without residual deficits
CPT/HCPCS: 99283; 96372; J1885

== ENCOUNTER 2025-01-22 09:06 | Emergency (ER) | payer MEDICAID ==
[~2025-01-22] VITALS: Ht 165.1 cm; Wt 91.0 kg
[~2025-01-22 09:06] MED LIST changes: +CAPS42.514 TP; +DICL100G46 TP; +LIDO-53 TP
[2025-01-22 09:17] VITALS: BP 152/102; TEMP 36.9; O2SAT 99
[2025-01-22 09:24] VITALS: PULSE 86; RESP 18; O2SAT 99
== END 2025-01-22 12:28 | disposition left against medical advice (07) ==
LOC: ER 10:28
DX: R52 Pain, unspecified (principal); Z53.21 Procedure and treatment not carried out due to patient leaving prior to being seen by health care provider
CPT/HCPCS: 99281